=== PATIENT | male | born 1965 | race Caucasian/White ===

== ENCOUNTER 2020-11-28 14:24 | Emergency (ER) | payer OTHER ==
[2020-11-28] MEDS ORDERED: Labetalol 20 MG/4 ML Syringe IVPUSH ONE (15:46)
--- NOTE | 2020-11-28 15:47 | EDM.PDOC ---
ED HPI GENERAL MEDICAL PROBLEM - General Chief Complaint: Cardiovascular Problem Stated Complaint: RAPID HEART RATE,SPOT IN VISION Time Seen by Provider: 11/28/20 15:47 Source of Information: Reports: Patient History Limitations: Reports: No Limitations - History of Present Illness INITIAL COMMENTS - FREE TEXT/NARRATIVE: pt was at work at [employer] and he saw spots in front of his eyes and his vision narrowed. That lasted for about 15 min andd it all cleared. He had his bp checked and it was markedly elevated. He has not had it checked for a long time. Onset: Today, Sudden Duration: Hour(s): Location: Reports: Head, Generalized, Other ( felt like his heart was racing. ) Associated Symptoms: Reports: Other ( visual change) Forehead Pain Score (Numeric/FACES): 2 - Related Data Allergies Allergy/AdvReac Type Severity Reaction Status Date / Time No Known Allergies Allergy Verified 11/28/20 14:44 Home Meds: Home Meds NK [No Known Home Meds] 11/28/20 [History] Past Medical History - Past Health History Medical/Surgical History: Denies Medical/Surgical History - Infectious Disease History Infectious Disease History: Reports: Chicken Pox Social & Family History - Tobacco Use Tobacco Use Status *Q: Never Tobacco User - Caffeine Use Caffeine Use: Reports: Soda - Recreational Drug Use Recreational Drug Use: No ED ROS GENERAL - Review of Systems Review Of Systems: See Below Constitutional: Reports: No Symptoms HEENT: Reports: Vision Change Respiratory: Reports: No Symptoms Cardiovascular: Reports: No Symptoms Endocrine: Reports: No Symptoms GI/Abdominal: Reports: No Symptoms : Reports: No Symptoms Musculoskeletal: Reports: No Symptoms Skin: Reports: No Symptoms ED EXAM, GENERAL - Physical Exam Exam: See Below Free Text/Narrative:: pt had normal pupils but talked about visual change that lasted for 15 min. His bp was very high. Exam Limited By: No Limitations General Appearance: Alert, Anxious, Mild Distress Ears: Normal TMs Nose: Normal Inspection Throat/Mouth: Normal Inspection Head: Atraumatic Neck: Normal Inspection Respiratory/Chest: No Respiratory Distress Cardiovascular: Regular Rate, Rhythm, Other ( no murmur. ) GI/Abdominal: Soft, Non-Tender (Male) Exam: Deferred Rectal (Males) Exam: Deferred Back Exam: Normal Inspection Extremities: Normal Inspection Neurological: Alert, Oriented, Normal Cognition Psychiatric: Normal Affect Course - Vital Signs Last Recorded V/S: Last Vital Signs Temp 36.9 C 11/28/20 14:49 Pulse 83 11/28/20 17:15 Resp 22 H 11/28/20 17:15 BP 171/108 H 11/28/20 17:15 Pulse Ox 96 11/28/20 17:15 - Orders/Labs/Meds Orders: Active Orders 24 hr Category Date Time Status EKG Documentation Completion [RC] ASDIRECTED Care 11/28/20 15:47 Active UA W/MICROSCOPIC [URIN] Urgent Lab 11/28/20 17:10 Ordered Sodium Chloride 0.9% [Normal Saline] 1,000 ml Med 11/28/20 16:00 Active IV ASDIRECTED EKG 12 Lead [EK] Routine Ther 11/28/20 15:47 Ordered Medication Orders Sodium Chloride (Normal Saline) 1,000 mls @ 300 mls/hr IV ASDIRECTED ZACK Last Admin: 11/28/20 16:13 Dose: 300 mls/hr Documented by: NOLAN Labs: Laboratory Tests 11/28/20 11/28/20 11/28/20 Range/Units 16:05 16:09 16:09 WBC 6.5 (4.5-11.0) K/uL RBC 5.43 (4.30-5.90) M/uL Hgb 16.6 H (12.0-15.0) g/dL Hct 48.2 (40.0-54.0) % MCV 89 (80-98) fL MCH 31 (27-31) pg MCHC 34 (32-36) % Plt Count 222 (150-400) K/uL Neut % (Auto) 66 (36-66) % Lymph % (Auto) 20 L (24-44) % [place] % (Auto) 11 H (2-6) % Eos % (Auto) 3 (2-4) % Baso % (Auto) 0 (0-1) % Sodium 138 L (140-148) mmol/L Potassium 4.5 (3.6-5.2) mmol/L Chloride 101 (100-108) mmol/L Carbon Dioxide 30 (21-32) mmol/L Anion Gap 11.5 (5.0-14.0) mmol/L BUN 21 H (7-18) mg/dL Creatinine 1.0 (0.8-1.3) mg/dL Est Cr Clr Drug Dosing 92.69 mL/min Estimated GFR (MDRD) > 60 (>60) Glucose 99 (74-106) mg/dL Calcium 8.7 (8.5-10.1) mg/dL Total Bilirubin 1.5 H (0.2-1.0) mg/dL AST 33 (15-37) U/L ALT 47 (12-78) U/L Alkaline Phosphatase 103 (46-116) U/L Troponin I < 0.017 (0.000-0.056) ng/mL Total Protein 7.5 (6.4-8.2) g/dL Albumin 3.6 (3.4-5.0) g/dL Globulin 3.9 H (2.3-3.5) g/dL Albumin/Globulin Ratio 0.9 L (1.2-2.2) Meds: Medications Generic Name Dose Route Start Last Admin Trade Name Freq PRN Reason Stop Dose Admin Sodium Chloride 1,000 mls @ 300 mls/hr 11/28/20 16:00 11/28/20 16:13 Normal Saline IV 300 mls/hr ASDIRECTED ZACK Administration Discontinued Medications Generic Name Dose Route Start Last Admin Trade Name Freq PRN Reason Stop Dose Admin Labetalol HCl 20 mg 11/28/20 15:46 11/28/20 16:06 Normodyne IVPUSH 11/28/20 15:47 20 mg NOW ONE Administration Protocol Lisinopril 5 mg 11/28/20 16:48 11/28/20 16:54 Prinivil PO 11/28/20 16:49 5 mg ONETIME ONE Administration - Re-Assessments/Exams Free Text/Narrative Re-Assessment/Exam: 11/28/20 17:23 pt was given lisinopril and iv labetol. His bp came down nicely and he felt better. Departure - Departure Time of Disposition: 17:08 Disposition: Home, Self-Care 01 Condition: Fair Clinical Impression: Hypertension Instructions: Hypertension, Adult, [id number] Referrals: PCP,None [Primary Care Provider] - Forms: ED Department Discharge Care Plan Goals: decrease salt intake, no work this weekend, low activity, start some exercise such as walking, appt with Dr Oneal in 4-5 days. lisinopril 5 mg 1 tab daily. Sepsis Event Note (ED) - Evaluation Sepsis Screening Result: No Definite Risk - Focused Exam Vital Signs: Vital Signs Temp Pulse Resp BP BP Pulse Ox 11/28/20 17:15 83 22 H 171/108 H 96 11/28/20 16:54 80 152/100 H 152/100 H 11/28/20 16:03 91 19 158/110 H 95 11/28/20 15:13 91 22 H 154/95 H 92 L 11/28/20 14:49 36.9 C 105 H 14 182/110 H 95 11/28/20 14:47 36.9 C 105 H 14 182/110 H 95 - My Orders Last 24 Hours: My Active Orders 11/28/20 15:47 EKG Documentation Completion [RC] ASDIRECTED EKG 12 Lead [EK] Routine 11/28/20 16:00 Sodium Chloride 0.9% [Normal Saline] 1,000 ml IV ASDIRECTED 11/28/20 17:10 UA W/MICROSCOPIC [URIN] Urgent - Assessment/Plan Last 24 Hours: My Active Orders 11/28/20 15:47 EKG Documentation Completion [RC] ASDIRECTED EKG 12 Lead [EK] Routine 11/28/20 16:00 Sodium Chloride 0.9% [Normal Saline] 1,000 ml IV ASDIRECTED 11/28/20 17:10 UA W/MICROSCOPIC [URIN] Urgent
[2020-11-28] MEDS ORDERED: Sodium Chloride 0.9% 1,000 ML IV SCH (16:00)
[2020-11-28] MEDS ORDERED: Lisinopril 5 MG Tab PO ONE (16:48)
== END 2020-11-28 17:23 | disposition home or self-care (01) ==
LOC: JP.ED 14:24
DX: I10 Essential (primary) hypertension (principal)
CPT/HCPCS: 36415; 80053; 84484; 85025; 93005; 93010; 96374; 99283-25; 99284; A9270-GY; J3490; J7030

== ENCOUNTER 2020-12-16 06:57 | Day surgery (SDC) | payer OTHER ==
[2020-12-16] MEDS ORDERED: Propofol 200 MG/20 ML SDV ONE (06:58)
[2020-12-16] MEDS ORDERED: fentaNYL 100 MCG/2 ML SDV ONE (06:58)
[2020-12-16] MEDS ORDERED: Midazolam 1 MG/ML 2 ML SDV ONE (06:58)
[2020-12-16] MEDS ORDERED: Dextrose 5%-Lactated Ringers 1,000 ML IV SCH (07:30)
--- NOTE | 2020-12-22 17:33 | OR ---
DATE OF PROCEDURE: 12/16/2020 SURGEON: Mark Rowley MD PREOPERATIVE DIAGNOSIS: Indication for screening colonoscopy. POSTOPERATIVE DIAGNOSIS: Colorectal polyps x5. OPERATIVE PROCEDURE: Flexible colonoscopy with polypectomy by snare technique x5. ANESTHESIA: IV sedation. INDICATION FOR PROCEDURE: This is a 55-year-old presenting with initial colonoscopy. The plan is to proceed with a colonoscopy with biopsies and/or polypectomy as indicated. Potential risks of the procedure including bleeding and perforation were discussed, and the patient wishes to proceed. DETAILS OF PROCEDURE: The patient was taken to the operating room, placed in a left lateral decubitus position. IV sedation was administered after which the initial digital rectal exam was performed and was unremarkable. The scope was then eventually passed to the cecum. The prep was quite good, only a small amount of liquid stool was present. Overall, total of five polyps were identified, these were all fairly small, in the range of 3 to 5 mm, and in each case were removed by means of cautery snare technique with good hemostasis being identified. The most proximal polyp was in the distal transverse colon and there was one in the splenic flexure, one in the mid sigmoid colon, two more or less [id number] in the distal sigmoid colon, and one in the quite low rectum. These all likely will be benign, but assuming that is the case, his next colonoscopy should probably be in 2 years given the number of polyps that were removed. We will contact the patient regarding the pathology and appropriate followup. Mark Rowley MD /[id number]
== END 2020-12-16 10:24 | disposition home or self-care (01) ==
LOC: JP.SDS 06:57
PROVIDERS: ATTEND Surgery
DX: Z12.11 Encounter for screening for malignant neoplasm of colon (principal); D12.3 Benign neoplasm of transverse colon; K62.1 Rectal polyp; I10 Essential (primary) hypertension
CPT/HCPCS: 45385; 88305; J2250; J2704; J3010; J7121

== ENCOUNTER 2024-08-09 06:47 | Day surgery (SDC) | payer BC, OTHER ==
[2024-08-09] MEDS: Sodium Chloride 0.9% 1,000 ML IV SCH (07:27)
[2024-08-09] MEDS ORDERED: fentaNYL 50 MCG/ML SDV ONE (07:39)
[2024-08-09] MEDS ORDERED: Midazolam 1 MG/ML 2 ML SDV ONE (07:39)
[2024-08-09] MEDS ORDERED: Propofol 200 MG/20 ML SDV ONE (07:39)
== END 2024-08-09 09:55 | disposition home or self-care (01) ==
LOC: JP.SDS 06:47
PROVIDERS: ATTEND Surgery
DX: Z12.11 Encounter for screening for malignant neoplasm of colon (principal); D12.2 Benign neoplasm of ascending colon; D12.3 Benign neoplasm of transverse colon; K57.30 Diverticulosis of large intestine without perforation or abscess without bleeding; I10 Essential (primary) hypertension
CPT/HCPCS: 00811-QZ; J2250; J2704; J3010; J7030